=== PATIENT | female | born 1970 | race Caucasian/White ===

== ENCOUNTER 2023-04-09 10:06 | Emergency (ER) | payer OTHER, SELFPAY ==
[2023-04-09 10:14] VITALS: BP 152/88; PULSE 80; RESP 18; TEMP 37.1; O2SAT 100
--- NOTE | 2023-04-09 11:11 | ED.ALLEREA ---
HPI - Allergic Reaction General Chief complaint: Allergic Reaction Stated complaint: allergic reaction x 2 weeks Time Seen by Provider: 04/09/23 11:07 Source: patient Mode of arrival: ambulatory Limitations: no limitations History of Present Illness HPI narrative: Rochelle is a 52-year-old female patient presenting to the ER today for a possible allergic reaction. She reports she was seen in an ER 1 week ago for similar symptoms and diagnosed with an allergic reaction. They gave her oral steroids and Zyrtec. She reports that she has finished up the steroids and her symptoms are returning. States she is having a lot of swelling and itching and watering of the bilateral eyes as well as some itching in her throat. She states that she was wrapping presents prior to this happening this morning. Denies any new environmental changes, foods, medications, soaps, or detergents. Denies any shortness of breath, chest pain, tongue swelling, or difficulty swallowing. Does have an EpiPen from her last visit but did not use it. No visible rash noted Related Data Allergies Allergy/AdvReac Type Severity Reaction Status Date / Time gabapentin Allergy Mild Unknown Verified 04/09/23 10:18 tramadol Allergy Mild Unknown Verified 04/09/23 10:18 Review of Systems Review of Systems: Pertinent positives per HPI. Patient denies any fever, chills, rash, headache, visual changes, dizziness, cough, runny nose, sore throat, shortness of breath, chest pain, palpitations, nausea, vomiting, diarrhea, constipation, abdominal pain, or any urinary issues. PMFSH Comments At the time of my signature, I reviewed and agree with the nursing past medical, surgical, social, and family history. There is no relevant family history pertinent to the patient complaint. Exam Narrative: General: Well-developed, well nourished, in no apparent distress Head: Normocephalic, atraumatic Eyes: Pupils equally round and reactive to light bilaterally, EOM intact, sclera and conjunctive injected with watery discharge coming from eyes right greater than left, lids mildly swollen bilaterally Ears: TMs intact and clear, ear canals clear, no drainage, grossly hearing normal. Nose: Nares patent, clear nasal discharge, no inflammation, no sinus tenderness. Mouth: Oropharynx without lesions or masses, good dentition, MMM. Postnasal drip Neck: Supple, trachea midline, no enlargement of anterior or posterior cervical nodes, no thyroid masses or goiter palpable. Cardio: Regular rate and rhythm, s1 and s2 normal, no murmur appreciated. Resp: Clear to auscultation bilaterally anteriorly and posteriorly, no rhonchi, rales, wheezing or rubs Course Course Emergency Course: Portions of this record may have been created with voice recognition software. Vital Signs Vital signs: Vital Signs Temperature 37.1 C 04/09/23 10:14 Pulse Rate 80 04/09/23 10:14 Respiratory Rate 18 04/09/23 10:14 Blood Pressure 152/88 H 04/09/23 10:14 Pulse Oximetry 100 04/09/23 10:14 Oxygen Delivery Room Air 04/09/23 10:14 Temperature 37.1 C 04/09/23 10:14 Pulse Rate 80 04/09/23 10:14 Respiratory Rate 18 04/09/23 10:14 Blood Pressure 152/88 H 04/09/23 10:14 Pulse Oximetry 100 04/09/23 10:14 Oxygen Delivery Room Air 04/09/23 10:14 Vital signs reviewed MDM - Allergic Reaction MDM Narrative Medical decision making narrative: At the time of visit patient is resting comfortably on the exam table. Patient appears to be nontoxic. Lung sounds are clear and patient denies any shortness of breath. I suspect the patient has allergic conjunctivitis with an allergy response. Decadron 10 mg IM given in the ER today. Will also send in azelastine, prednisone, and Pepcid. Supportive measures were discussed with the patient and they voiced understanding discharge instructions and agrees to treatment plan. Return precautions reviewed. Differential Diagnosis Differential
[2023-04-09 11:54] VITALS: BP 152/84; PULSE 85; RESP 17; O2SAT 99
== END 2023-04-09 11:55 | disposition home or self-care (01) ==
PROVIDERS: Emergency Provider Nurse Practitioner Family
DX: H10.13 Acute atopic conjunctivitis, bilateral (principal); T78.40XA Allergy, unspecified, initial encounter; Z23 Encounter for immunization
CPT/HCPCS: 90471; 99283; J1100

== ENCOUNTER 2023-05-25 13:32 | Emergency (ER) | payer MEDICAID, SELFPAY ==
[2023-05-25 13:34] VITALS: BP 187/99; PULSE 97; RESP 18; TEMP 36.4; O2SAT 100
--- NOTE | 2023-05-25 15:44 | ED.GENADULT ---
HPI - General Adult General Chief complaint: Allergic Reaction Stated complaint: allergic Time Seen by Provider: 05/25/23 13:59 History of Present Illness HPI narrative: Patient is a 52-year-old female who presents ER with eye swelling and tearing. Ongoing for 2-3 months. Initially started after a kitten was in her home but then it was removed. She has laundered every item in her home including her couch covers. She reports she uses and dye free and fragrance free detergents. She is not using any perfumed soaps or body washes. She reports that she has seen her PCP who did allergic blood work on her but she has been taking steroids at the time and the results were inconclusive. She has not seen an automatic lump making machine tender. She recently just got on Medicaid. She is scheduled to follow-up with ENT in 1 month. She has history of nasal polyps diagnosed 3 years ago. At that time she is supposed to have surgery but it did not occur. Patient has noticed no association with any medication or food. Patient has been taking Benadryl to help the symptoms but also takes b.i.d. cetirizine and famotidine. She has been using fluticasone 1 time a day. Related Data Home Medications Medication Instructions Recorded Confirmed cetirizine 10 mg tablet 10 mg PO DAILY 05/25/23 05/25/23 diphenhydramine HCl 25 mg tablet 25 mg PO TID PRN Allergy Symptoms 05/25/23 05/25/23 (Banophen) fluticasone furoate 27.5 1 spray intranasal DAILY 05/25/23 05/25/23 mcg/actuation nasal spray,suspension Allergies Allergy/AdvReac Type Severity Reaction Status Date / Time gabapentin Allergy Mild Unknown Verified 05/25/23 13:48 tramadol Allergy Mild Unknown Verified 05/25/23 13:48 Review of Systems Review of Systems: All systems reviewed & are unremarkable except as noted in HPI and below Constitutional: Constitutional: Reports no additional constitutional complaints ENT: Reports system reviewed and no additional complaints, except as documented Cardiovascular: Cardiovascular: Reports no additional cardiovascular complaints Respiratory: Respiratory: Reports no additional respiratory complaints Integumentary/Breasts: Skin/Breast: Denies pruritus, Reports erythema and Denies rash Allergic/Immunologic: Allergic/Immunologic: Denies lip swelling, Denies throat swelling, Denies tongue swelling and Denies wheezing Comments: eyelid swelling PMFSH Past Medical History Medical History (Updated 05/25/23 @ 15:50 by Imtiaz Azul MD) Anxiety Depression Nasal polyps Surgical History Surgical History (Updated 05/25/23 @ 15:50 by Imtiaz Azul MD) History of hysterectomy Exam Narrative: GENERAL: Well-appearing, well-nourished, and in no acute distress. HEAD: Normocephalic, atraumatic. eyes: Injected conjunctiva. Mild tearing. Normal sclera. EOMI. ENT: Mucous membranes moist. No posterior oropharyngeal swelling. EXTREMITIES: Normal range of motion. No edema. SKIN: Warm, dry, no rash. NEURO: Alert and oriented x3. PSYCH: Normal mood and affect. Course Course Emergency Course: No symptoms may relate and nasal polyps obstructing drainage passage. Recommend increasing fluids take the stone to twice a day and following up with ENT. Vital Signs Vital signs: Vital Signs Temperature 97.6 F 05/25/23 13:34 Pulse Rate 97 05/25/23 13:34 Respiratory Rate 18 05/25/23 13:34 Blood Pressure 187/99 H 05/25/23 13:34 Pulse Oximetry 100 05/25/23 13:34 Oxygen Delivery Room Air 05/25/23 13:34 Temperature 97.6 F 05/25/23 13:34 Pulse Rate 97 05/25/23 13:34 Respiratory Rate 18 05/25/23 13:34 Blood Pressure 187/99 H 05/25/23 13:34 Pulse Oximetry 100 05/25/23 13:34 Oxygen Delivery Room Air 05/25/23 13:34 Medical Decision Making Vital Signs Vital Signs: Vital Signs Temperature 97.6 F 05/25/23 13:34 Pulse Rate 97 05/25/23 13:34 Respiratory Rate 18 05/25/23 13:34 Blood Pressure
--- NOTE | 2023-05-26 08:42 | PC.NURSE ---
Pt called inquiring about discharge prescriptions from visit on 05/25/23. Reviewed discharge instructions with pt. Pt voices understanding
== END 2023-05-25 15:59 | disposition home or self-care (01) ==
PROVIDERS: Emergency Provider Emergency Medicine
DX: H57.89 Other specified disorders of eye and adnexa (principal); J33.9 Nasal polyp, unspecified; Z90.710 Acquired absence of both cervix and uterus
CPT/HCPCS: 99281

== ENCOUNTER 2023-06-08 13:09 | Emergency (ER) | payer MEDICAID, SELFPAY ==
--- NOTE | ~2023-06-08 | XR_ITS ---
EXAMINATION: XR chest 2V DATE: 06/08/2023 18:29 INDICATION: Facial swelling. TECHNIQUE: Frontal and lateral views of the chest were obtained. COMPARISON: Chest 2 views 04/25/2017 FINDINGS: Calcified pulmonary nodules and calcified hilar lymph nodes are consistent with old granulo matous disease. No pleural effusion or pneumothorax. The heart size is normal. IMPRESSION: 1. No acute cardiopulmonary disease. Reviewed, dictated and finalized at location E. PUNCHING MACHINE OPERATOR
--- NOTE | ~2023-06-08 | CT_ITS ---
EXAMINATION: CT soft tissue neck w con DATE: 06/08/2023 19:57 INDICATION: Face, head, and neck swelling. Left posterolateral neck discomfort. TECHNIQUE: Computed tomography (CT) of the neck was performed with 75 mL Omnipaque-350 intravenous co ntrast. Automated exposure control and iterative reconstruction technique were employed. The dose-lisa gth product was 407.70 mGy-cm. COMPARISON: None FINDINGS: There is mild scarring at the lung apices. There is a mucous retention cyst in right maxill deana sinus. There are no pathologically enlarged lymph nodes. There is plaque in the proximal internal carotid arteries with 0% stenosis relative to normal distal artery lumen diameters. There is mild ce rvical spondylosis. IMPRESSION: 1. No specific etiology for the patient's symptoms. I called this result to Dr. Gomez at 8:03 PM. Reviewed, dictated and finalized at location E. ERNAIL SCULPTOR
[2023-06-08 14:07] VITALS: BP 157/95; PULSE 83; RESP 16; TEMP 36.4; O2SAT 100
--- NOTE | 2023-06-08 17:09 | ED.GENADULT ---
HPI - General Adult General Chief complaint: Unspecified Stated complaint: facial swelling Time Seen by Provider: 06/08/23 14:37 Source: patient Limitations: no limitations History of Present Illness HPI narrative: Patient is a 52-year-old female presents to the emergency department complaining of neck discomfort and facial swelling. Patient states she has been having facial swelling daily for the past 3 months and has not gone away and seems to be overall gradually getting worse, has been on multiple medications for allergies without any recent changes, denies any new exposures, admits to having multiple allergy testing performed, does not know causes of facial swelling. Patient states for the past couple days she has been noticing some discomfort in the back left side of her neck that has not gotten better. Patient also admits to some mild lightheadedness when she stands up the past couple days. Patient admits to being adequately hydrated with clear urine. Patient denies difficulty swallowing, numbness, weakness, chest pain, difficulty breathing, abdominal pain, urinary discomfort, diarrhea, nausea, vomiting, rash, lip swelling, tongue swelling, confusion, ear pain, fever, recent injuries, recent illness, new exposures to allergen commons. patient admits to chronic congestion. Related Data Home Medications Medication Instructions Recorded Confirmed cetirizine 10 mg tablet 10 mg PO DAILY 05/25/23 05/25/23 diphenhydramine HCl 25 mg tablet 25 mg PO TID PRN Allergy Symptoms 05/25/23 05/25/23 (Banophen) fluticasone furoate 27.5 1 spray intranasal DAILY 05/25/23 05/25/23 mcg/actuation nasal spray,suspension Allergies Allergy/AdvReac Type Severity Reaction Status Date / Time gabapentin Allergy Mild Unknown Verified 05/25/23 13:48 tramadol Allergy Mild Unknown Verified 05/25/23 13:48 Review of Systems Review of Systems: A 10 system review of systems was completed on the patient and is negative except for what is stated in the HPI. Nursing and ancillary documentation was reviewed. [facility] Past Medical History Medical History (Updated 06/08/23 @ 20:30 by Jewel Gomez DO) Anxiety Depression Nasal polyps Surgical History Surgical History (Updated 05/25/23 @ 15:50 by Imtiaz Azul MD) History of hysterectomy Comments At time of signature, I have reviewed and agree with nursing past medical, surgical, social and family history unless otherwise noted. Please see the nursing chart for further information. There is no relevant family history pertinent to the presenting complaint. Exam Narrative: CONST: No acute distress. Well nourished. HENMT: Head is normocephalic and atraumatic. Moist mucous membranes. No posterior oropharynx erythema. No angioedema. Bilateral tympanic membranes are without bulging or erythema. Mild nasal congestion bilaterally. Scant diffuse facial swelling. EYES: No conjunctival icterus, injection, or pallor. PERRL. Extraocular motions intact. NECK: No meningeal signs. Scant bilateral palpable nontender shotty lymphadenopathy in the anterior cervical superficial region. No carotid bruits on auscultation bilaterally. Mild left superolateral trapezius muscle spasm and middle scalene spasm. No palpable thyromegaly or thyroid tenderness to palpation. RESP: Able to speak in full sentences. Normal respiratory effort. CTAB. CARDIO: Regular rate. Regular rhythm. 2+ DP and radial pulses bilaterally. GI: Nondistended. No tenderness to palpation. Soft. : No CVA tenderness to palpation. SKIN: No rashes or lesions noted on exposed skin. NEURO: Oriented x3. Moves all extremities. No focal neurological deficits. Cranial nerves 2-12 intact. EXTREM/MSK/BACK: No pedal edema. PSYCH: Normal affect. Course Vital Signs Vital signs: Vital Signs Temperature 97.6 F 06/08/23 14:07 Pulse Rate 83 06/08/23 14:07 Respiratory Rate 16 06/08/23 14:07 Blood Pressure
--- NOTE | 2023-06-08 17:15 | ECG_ITS ---
Measurements Intervals [place] Rate: 71 P: 244 LA: 143 QRS: 6 QRSD: 120 T: 36 QT: 381 QTc: 414 Interpretive Statements NORMAL SINUS RHYTHM INCOMPLETE RIGHT BUNDLE BRANCH BLOCK BORDERLINE ECG NO PREVIOUS ECG AVAILABLE FOR COMPARISON Electronically Signed On 06-09-2023 7:12:27 SUPERVISOR CAPAC[employer]OR PROCESSING by Bennie Menchaca M.D.
[2023-06-08 17:49] LABS: Basophils Absolute Auto 0.1 K/mm3 (0.0-0.1); Basophils Percent Auto 0.7 % (0.2-1.2); Eosinophils Absolute Auto 0.1 K/mm3 (0-0.3); Eosinophils Percent Auto 0.5 % (0-4.4); Hematocrit 40.9 % (37.0-47.0); Hemoglobin 13.6 g/dL (12.0-15.0); Immature Granulocyte Absolute 0.03 K/mm3 (0.00-0.031); Immature Granulocyte Percent A 0.3 % (0-0.5); Lymphocytes Absolute Auto 1.92 K/mm3 (0.9-3.2); Lymphocytes Percent Auto 17.3 % (18.3-44.2); Mean Corpuscular HGB Conc 33.3 g/dl (32-36); Mean Corpuscular Hemoglobin 30.4 pg (26-34); Mean Corpuscular Volume 91.3 fl (80-100); Monocytes Absolute Auto 0.7 K/mm3 (0.1-0.6); Monocytes Percent Auto 6.7 % (2.6-8.5); Neutrophils Absolute Auto 8.3 K/mm3 (1.3-6.7); Neutrophils Percent Auto 74.5 % (45.5-73.1); Platelet Count Result 323 k/mm3 (150-375); Red Blood Count 4.48 M/mm3 (4.2-5.4); Red Cell Distribution Width 12.6 % (11.5-14.5); White Blood Count 11.1 K/mm3 (4.5-10.0)
[2023-06-08 17:58] LABS: Magnesium 2.3 mg/dL (1.6-2.3)
[2023-06-08 17:59] LABS: Alanine Aminotransferase 17 U/L (6-35); Albumin Level 4.4 g/dL (3.5-5.1); Alkaline Phosphatase 83 U/L (38-126); Anion Gap 5 mmol/L (8-16); Aspartate Amino Transferase 28 U/L (14-36); Bilirubin,Total 0.7 mg/dL (0.2-1.3); Blood Urea Nitrogen 12 mg/dL (7-17); Calcium 9.6 mg/dL (8.4-10.2); Carbon Dioxide 30 mmol/L (22-30); Chloride 105 mmol/L (98-107); Estimated CRCL calculation 72 ml/min; Estimated Glomerular Filt Rate > 60; Glucose 85 mg/dL (65-110); Potassium 3.9 mmol/L (3.4-5.0); Sodium 140 mmol/L (137-145)
[2023-06-08 18:02] LABS: Appearance Urine Turbid (Clear); Bacteria Urine 4+ /hpf; Bilirubin Urine Negative (Negative); Color Urine Yellow (Yellow); Glucose Urine UA Negative (Negative); Ketones Urine Negative (Negative); Leukocyte Esterase Ur 3+ LEU/UL (Negative); Need Manual Microscopic Reviewed; Nitrate Urine Negative (Negative); Protein Urine 1+ mg/dL (Negative); RBC Urine 0-2 /hpf (0-2); Squamous Epithelial Cell Urine Many /hpf (Few); WBC Urine >100 /hpf; pH Urine 6.5 (5.0-9.0)
[2023-06-08 18:03] LABS: Add Urine Microscopic? YES
[2023-06-08 18:10] LABS: Troponin I < 0.012 ng/mL (0.000-0.034)
[2023-06-08 18:26] LABS: Influenza A QL RT-PCR Negative (Negative); Influenza B QL RT-PCR Negative (Negative); RSV RNA, RT-PCR Negative (Negative); SARS-CoV-2 RNA PCR Negative (Negative)
[2023-06-08 19:21] LABS: Thyroid Stimulating Hormone Reflex 0.479 uIU/mL (0.465-4.68)
[2023-06-08] MEDS: KETOROLAC 15 MG/ML VIAL (*BKC) IV PUSH (19:34)
[2023-06-08 21:00] VITALS: BP 148/99; PULSE 78; RESP 15; TEMP 36.4; O2SAT 97
== END 2023-06-08 21:03 | disposition home or self-care (01) ==
PROVIDERS: Emergency Provider Student in an Organized Health Care Education/Training Program
DX: S16.1XXA Strain of muscle, fascia and tendon at neck level, initial encounter (principal); Z20.822 Contact with and (suspected) exposure to COVID-19; F41.9 Anxiety disorder, unspecified; F32.A Depression, unspecified; Z90.710 Acquired absence of both cervix and uterus; X58.XXXA Exposure to other specified factors, initial encounter
CPT/HCPCS: 36415; 70491; 71046; 80053; 81001; 83735; 84443; 84484; 85025; 87086; 87637; 93005; 96374; 99284; J1885; Q9967

== ENCOUNTER 2023-06-22 16:16 | Outpatient (CLI) | payer MEDICAID, SELFPAY ==
--- NOTE | ~2023-06-22 | MM_ITS ---
EXAMINATION: MM screening alfonzo BI w vega HISTORY: Screening TECHNIQUE: Craniocaudal and mediolateral oblique 3-D tomosynthesis images were obtained and synthetic 2-D images were generated. CAD analysis was submitted and interpreted. COMPARISON: No prior mammogram is available for comparison at this institution. BREAST PARENCHYMAL COMPOSITION: The breasts are heterogeneously dense, which may obscure small masses . FINDINGS: There is no evidence of suspicious mass, calcification, or architectural distortion to sugg est malignancy in either breast. There has been no suspicious interval change. IMPRESSION: 1. No mammographic evidence of malignancy. 2. Recommend routine screening mammography in one year. BI-RADS Category 1: Negative Reviewed, dictated and finalized at location A. [employer]
== END 2023-06-22 16:17 | disposition home or self-care (01) ==
LOC: ANHIMG 16:19
PROVIDERS: Visit Provider Internal Medicine
DX: Z12.31 Encounter for screening mammogram for malignant neoplasm of breast (principal)
CPT/HCPCS: 77063; 77067

== ENCOUNTER 2023-06-27 21:14 | Emergency (ER) | payer MEDICAID, SELFPAY ==
[2023-06-27 21:25] VITALS: BP 136/76; PULSE 99; RESP 16; TEMP 36.6; O2SAT 97
[2023-06-28 00:13] VITALS: BP 134/87; PULSE 85; RESP 16; TEMP 36.8; O2SAT 98
--- NOTE | 2023-06-28 00:16 | ED.GENADULT ---
HPI - General Adult General Chief complaint: Nausea/Vomiting/Diarrhea Stated complaint: n/v/d Time Seen by Provider: 06/28/23 00:10 Source: patient Mode of arrival: ambulatory Limitations: no limitations History of Present Illness HPI narrative: This is a 53-year-old female who presents to the ED with chief complaint of N/V/D beginning around 1:00 p.m. today. 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 She states this was accompanied by multiple episodes of diarrhea. Denies any GI bleeding symptoms. Denies syncope or lightheadedness. She does endorse some abdominal pain that seems to be more associated with the diarrhea and is described as cramping. She had not eaten any food yet today. Endorses mild headache. denies fevers, chills, shortness of breath, chest pain, urinary symptoms. Related Data Home Medications Medication Instructions Recorded Confirmed cetirizine 10 mg tablet 10 mg PO DAILY 05/25/23 06/26/23 diphenhydramine HCl 25 mg tablet 25 mg PO TID PRN Allergy Symptoms 05/25/23 06/26/23 (Banophen) fluticasone furoate 27.5 2 - 3 spray intranasal BID 06/26/23 06/26/23 mcg/actuation nasal spray,suspension Allergies Allergy/AdvReac Type Severity Reaction Status Date / Time gabapentin Allergy Mild Unknown Verified 06/27/23 21:27 tramadol Allergy Mild Unknown Verified 06/27/23 21:27 Review of Systems Review of Systems: All systems as dictated in [facility] Past Medical History Medical History Anxiety Depression Nasal polyps Surgical History Surgical History History of hysterectomy Family History Family History (Updated 06/26/23 @ 09:41 by Katy Kellogg CMA) Father Cancer Diabetes mellitus Hypertension Mother Cancer Depression Other Cancer Social History Social History (Updated 06/26/23 @ 09:40 by Katy Kellogg CMA) Smoking status: Never smoker Tobacco type: e-cigarettes/vaping Alcohol intake: current Substance use: never Substance use type: does not use Do You Feel Safe in your Home?: Yes Lack of Transportation: No Lack of Food: Never True Current Housing: I Have Housing Concerned About Future Housing: No Difficulty Paying Gas/Electric Bills: No Difficulty Paying for Meds: No Currently Unemployed: No Education: Trade/Vocational Certificate Difficulty w/ Childcare or Family Care: No Exam Narrative: GENERAL: Well-appearing, well-nourished, and in no acute distress. HEAD: Normocephalic, atraumatic. EYES: PERRLA and EOMI. ENT: Nares clear, no rhinorrhea or epistaxis. Mucous membranes moist. Oropharynx without tonsillar hypertrophy exudate or other lesions. NECK: Supple. No adenopathy or masses. CHEST: No respiratory distress. Clear to auscultation. No wheezes rales or rhonchi HEART: Regular rate and rhythm. No murmur heard. Normal peripheral pulses. ABDOMEN: Soft, grossly nontender, nondistended, normal active bowel sounds. No flank tenderness bilaterally. MSK: Normal range of motion. No edema. SKIN: Warm, dry, no rash. NEURO: Alert and oriented x3. No focal deficits. PSYCH: Normal mood and affect. Course Vital Signs Vital signs: Vital Signs Temperature 97.9 F 06/27/23 21:25 Pulse Rate 99 06/27/23 21:25 Respiratory Rate 16 06/27/23 21:25 Blood Pressure 136/76 06/27/23 21:25 Pulse Oximetry 97 06/27/23 21:25 Oxygen Delivery Room Air 06/27/23 21:25 Temperature 98.2 F 06/28/23 00:13 Pulse Rate 85 06/28/23 00:13 Respiratory Rate 16 06/28/23 00:13 Blood Pressure 134/87 06/28/23 00:13 Pulse Oximetry 98 06/28/23 00:13 Oxygen Delivery Room Air 06/27/23 21:25 Medical Decision Making MDM Narrative Medical decision making narrative: This is a 53-year-old female
[2023-06-28 00:23] LABS: Basophils Absolute Auto 0.1 K/mm3 (0.0-0.1); Basophils Percent Auto 0.4 % (0.2-1.2); Eosinophils Absolute Auto 0.1 K/mm3 (0-0.3); Eosinophils Percent Auto 0.4 % (0-4.4); Hematocrit 40.5 % (37.0-47.0); Hemoglobin 13.7 g/dL (12.0-15.0); Immature Granulocyte Absolute 0.05 K/mm3 (0.00-0.031); Immature Granulocyte Percent A 0.4 % (0-0.5); Lymphocytes Percent Auto 3.7 % (18.3-44.2); Mean Corpuscular HGB Conc 33.8 g/dl (32-36); Mean Corpuscular Hemoglobin 30.6 pg (26-34); Mean Corpuscular Volume 90.4 fl (80-100); Mean Platelet Volume 9.2 fl (7.4-10.4); Monocytes Absolute Auto 0.6 K/mm3 (0.1-0.6); Monocytes Percent Auto 4.1 % (2.6-8.5); Neutrophils Absolute Auto 12.3 K/mm3 (1.3-6.7); Platelet Count Result 367 k/mm3 (150-375); Red Blood Count 4.48 M/mm3 (4.2-5.4); Red Cell Distribution Width 12.6 % (11.5-14.5); White Blood Count 13.5 K/mm3 (4.5-10.0)
[2023-06-28] MEDS: KETOROLAC 30 MG/ML VIAL (*BKC) IV PUSH (00:23)
[2023-06-28] MEDS: ONDANSETRON INJ 4 MG/2 ML VIAL IV PUSH (00:23)
[2023-06-28] MEDS: SODIUM CHLORIDE 0.9% IV 1,000 ML 999 ML IV CONT (00:24)
[2023-06-28 00:33] LABS: Alanine Aminotransferase 16 U/L (6-35); Albumin Level 4.6 g/dL (3.5-5.1); Alkaline Phosphatase 97 U/L (38-126); Anion Gap 7 mmol/L (8-16); Aspartate Amino Transferase 34 U/L (14-36); Bilirubin,Total 0.8 mg/dL (0.2-1.3); Blood Urea Nitrogen 17 mg/dL (7-17); Calcium 9.4 mg/dL (8.4-10.2); Carbon Dioxide 26 mmol/L (22-30); Chloride 102 mmol/L (98-107); Estimated CRCL calculation 80 ml/min; Estimated Glomerular Filt Rate > 60; Glucose 116 mg/dL (65-110); Lactic Acid Reflex 0.6 mmol/L (0.7-2.0); Lipase 46 U/L (23-300); Potassium 3.8 mmol/L (3.4-5.0); Sodium 135 mmol/L (137-145)
[2023-06-28 00:44] LABS: Appearance Urine Cloudy (Clear); Bacteria Urine Rare /hpf; Bilirubin Urine Negative (Negative); Blood Urine Negative (Negative); Color Urine Yellow (Yellow); Glucose Urine UA Negative (Negative); Ketones Urine 1+ mg/dL (Negative); Leukocyte Esterase Ur Negative LEU/UL (Negative); Nitrate Urine Negative (Negative); Non Pathogenic Casts 0-2; Protein Urine Negative (Negative); RBC Urine 0-2 /hpf (0-2); Squamous Epithelial Cell Urine Moderate /hpf (Few); WBC Urine 0-5 /hpf
[2023-06-28 00:50] LABS: Add Urine Microscopic? YES
[2023-06-28] MEDS: diphenhydrAMINE HCl INJ 50 MG/ML VIAL 25 MG IV PUSH (01:20)
[2023-06-28] MEDS: PROCHLORPERAZINE EDISYLATE 10 MG/2 ML VIAL IV PUSH (01:20)
[2023-06-28] MEDS: ACETAMINOPHEN 500 MG TABLET 1000 MG PO (01:20)
[2023-06-28 02:37] VITALS: BP 126/70; PULSE 78; RESP 16; TEMP 36.8; O2SAT 98
== END 2023-06-28 02:38 | disposition home or self-care (01) ==
PROVIDERS: Emergency Provider Physician Assistant; PCP Internal Medicine
DX: K52.9 Noninfective gastroenteritis and colitis, unspecified (principal); Z90.710 Acquired absence of both cervix and uterus
CPT/HCPCS: 36415; 80053; 81001; 83605; 83690; 85025; 96361; 96374; 96375; 99284; A9270; J0780; J1200; J1885; J2405; J7030

== ENCOUNTER 2023-11-09 16:43 | Emergency (ER) | payer OTHER, SELFPAY ==
[2023-11-09] VITALS (8 sets, daily range): BP systolic 119–161; BP diastolic 74–110; PULSE 77–86; RESP 12–19; TEMP 36.6; O2SAT 98–100
--- NOTE | ~2023-11-09 | CT_ITS ---
EXAMINATION: CT brain wo con DATE: 11/09/2023 17:55 INDICATION: Headache. TECHNIQUE: Computed tomography (CT) of the head was performed without intravenous contrast. The mA wa s adjusted according to patient size. Iterative reconstruction technique was employed. The dose-lengt h product was 681.00 mGy-cm. COMPARISON: Head CT 12/25/2012 FINDINGS: There is no intracranial hemorrhage, acute infarction, or abnormal intracranial mass lesion . The ventricles are normal in size. The orbits are normal. There is a mucous retention cyst in right maxillary sinus. There is mild mucosal thickening in the ethmoid sinuses. The mastoid air cells are normal. IMPRESSION: 1. Normal brain. Reviewed, dictated and finalized at location E. IMPRESSION: 1. Normal brain.
--- NOTE | 2023-11-09 17:47 | ED.GENADULT ---
HPI - General Adult General Chief complaint: Recheck/Abnormal Lab/Rx Stated complaint: high bp Time Seen by Provider: 11/09/23 17:35 History of Present Illness HPI narrative: 53-year-old female present to the emergency department for evaluation of elevated blood pressure. Patient states she was started on valsartan approximately 3 months ago. Patient states over the last few weeks she has had increasing fatigue. Patient was told by her primary care physician to stop the blood pressure medication to see if this helped. Patient stopped the medication approximately 2 weeks ago, patient still has the feelings of fatigue and now patient has elevated blood pressure and headache. Patient contacted her primary care physician and she was referred to the emergency department. Related Data Home Medications Medication Instructions Recorded Confirmed cetirizine 10 mg tablet 10 mg PO DAILY 05/25/23 06/26/23 diphenhydramine HCl 25 mg tablet 25 mg PO TID PRN Allergy Symptoms 05/25/23 06/26/23 (Banophen) fluticasone furoate 27.5 2 - 3 spray intranasal BID 06/26/23 06/26/23 mcg/actuation nasal spray,suspension valsartan 80 mg capsule 40 mg PO DAILY 11/09/23 Allergies Allergy/AdvReac Type Severity Reaction Status Date / Time gabapentin Allergy Mild Unknown Verified 11/09/23 17:36 tramadol Allergy Mild Unknown Verified 11/09/23 17:36 Review of Systems Review of Systems: All systems reviewed & are unremarkable except as noted in HPI and below PMFSH Past Medical History Medical History Anxiety Depression Nasal polyps Surgical History Surgical History History of hysterectomy Family History Family History (Updated 06/26/23 @ 09:41 by Katy Kellogg CMA) Father Cancer Diabetes mellitus Hypertension Mother Cancer Depression Other Cancer Social History Social History (Updated 06/26/23 @ 09:40 by Katy Kellogg CMA) Smoking status: Never smoker Tobacco type: e-cigarettes/vaping Alcohol intake: current Substance use: never Substance use type: does not use Do You Feel Safe in your Home?: Yes Lack of Transportation: No Lack of Food: Never True Current Housing: I Have Housing Concerned About Future Housing: No Difficulty Paying Gas/Electric Bills: No Difficulty Paying for Meds: No Currently Unemployed: No Education: Trade/Vocational Certificate Difficulty w/ Childcare or Family Care: No Exam Narrative: APPEARANCE: Well appearing, no pain, no distress, well-nourished. HEAD: normocephalic, atraumatic. EYES: PERRLA/EOMI, conjunctivae clear. NOSE: Normal no drainage EARS:TMS clear with good light reflex. THROAT: Pharynx clear, no exudate. NECK: Supple. No adenopathy, no masses. RESPIRATORY: Airway patent, respirations nonlabored. Clear to auscultation bilaterally, no rales, rhonchi, wheezing. CARDIOVASCULAR: Regular rate and rhythm without murmurs rubs or gallops. ABDOMINAL: Soft, nontender, nondistended, normal bowel sounds MUSCULOSKELETAL: Moves all extremities. Strength/ROM intact, No edema, No calf tenderness. NEURO: Alert. Cranial nerves II through XII intact. Good gait. Good coordination SKIN: Warm, dry. Normal Color PSYCHIATRIC: Normal affect/mood. Course Course Emergency Course: patient's blood pressure was 120/70 prior to discharge. Patient was encouraged of close follow-up with her primary care physician Vital Signs Vital signs: Vital Signs Temperature 97.8 F 11/09/23 16:50 Pulse Rate 86 11/09/23 16:50 Respiratory Rate 17 11/09/23 16:50 Blood Pressure 161/97 H 11/09/23 16:50 Pulse Oximetry 100 11/09/23 16:50 Oxygen Delivery Room Air 11/09/23 16:50 Temperature 97.8 F 11/09/23 16:50 Pulse Rate 78 11/09/23 19:29 Respiratory Rate 14 11/09/23 19:29 Blood Pressure 119/74 11/09/23 19:29 Pulse Ox
[2023-11-09] MEDS: hydrALAZINE HCL 20 MG/ML VIAL 10 MG IV PUSH (18:06)
[2023-11-09 18:16] LABS: Appearance Urine Clear (Clear); Bacteria Urine None Seen /hpf; Bilirubin Urine Negative (Negative); Blood Urine Negative (Negative); Color Urine Yellow (Yellow); Glucose Urine UA Negative (Negative); Ketones Urine Negative (Negative); Leukocyte Esterase Ur Trace LEU/UL (Negative); Nitrate Urine Negative (Negative); Non Pathogenic Casts 0-2; Protein Urine Negative (Negative); RBC Urine 0-2 /hpf (0-2); Specific Grav Ur 1.009 (1.001-1.035); Squamous Epithelial Cell Urine Occasional /hpf (Few); Urobilinogen Urine 0.2 mg/dL (<2.0); WBC Urine 0-5 /hpf (0-3); pH Urine 6.5 (5.0-9.0)
[2023-11-09 18:17] LABS: Add Urine Microscopic? YES
[2023-11-09 18:21] LABS: Alanine Aminotransferase 17 U/L (6-35); Alkaline Phosphatase 83 U/L (38-126); Anion Gap 9 mmol/L (4-12); Aspartate Amino Transferase 30 U/L (14-36); Bilirubin,Total 0.4 mg/dL (0.2-1.3); Blood Urea Nitrogen 15 mg/dL (7-17); Calcium 9.4 mg/dL (8.4-10.2); Carbon Dioxide 31 mmol/L (22-30); Chloride 103 mmol/L (98-107); Estimated CRCL calculation 62 ml/min; Estimated Glomerular Filt Rate > 60; Glucose 85 mg/dL (65-110); Potassium 4.4 mmol/L (3.4-5.0); Sodium 143 mmol/L (137-145)
[2023-11-09 18:23] LABS: INR 0.9; Prothrombin Time 12.5 Seconds (11.1-14.7)
[2023-11-09 18:24] LABS: Partial Thromboplastin Time 26.6 Seconds (22.3-36.8)
[2023-11-09 18:29] LABS: Basophils Absolute Auto 0.1 K/mm3 (0.0-0.1); Basophils Percent Auto 1.3 % (0.2-1.2); Eosinophils Absolute Auto 0.1 K/mm3 (0-0.3); Hematocrit 41.3 % (37.0-47.0); Immature Granulocyte Absolute 0.01 K/mm3 (0.00-0.031); Immature Granulocyte Percent A 0.1 % (0-0.5); Lymphocytes Absolute Auto 2.35 K/mm3 (0.9-3.2); Lymphocytes Percent Auto 34.8 % (18.3-44.2); Mean Corpuscular HGB Conc 33.9 g/dl (32-36); Mean Corpuscular Hemoglobin 31.1 pg (26-34); Mean Corpuscular Volume 91.8 fl (80-100); Mean Platelet Volume 9.5 fl (7.4-10.4); Monocytes Absolute Auto 0.6 K/mm3 (0.1-0.6); Monocytes Percent Auto 8.3 % (2.6-8.5); Neutrophils Absolute Auto 3.7 K/mm3 (1.3-6.7); Neutrophils Percent Auto 54.5 % (45.5-73.1); Platelet Count Result 346 k/mm3 (150-375); Red Cell Distribution Width 12.7 % (11.5-14.5); White Blood Count 6.8 K/mm3 (4.5-10.0)
[2023-11-09] MEDS: KETOROLAC 15 MG/ML VIAL (*BKC) IV PUSH (18:50)
== END 2023-11-09 19:31 | disposition home or self-care (01) ==
PROVIDERS: Emergency Provider Emergency Medicine; PCP Internal Medicine
DX: I10 Essential (primary) hypertension (principal); Z90.710 Acquired absence of both cervix and uterus; Z79.899 Other long term (current) drug therapy
CPT/HCPCS: 36415; 70450; 80053; 81001; 85025; 85610; 85730; 96374; 96375; 99284; J0360; J1885

== ENCOUNTER 2023-11-10 14:04 | Emergency (ER) | payer OTHER, SELFPAY ==
[2023-11-10 14:26] VITALS: BP 148/85; PULSE 86; RESP 16; TEMP 36.6; O2SAT 98
--- NOTE | 2023-11-10 14:30 | PC.NURSE ---
during triage BP 148/85. Pt states if that's what it is I'm going home. Pt advised of risks and concerns of LWBS since she also has c/o my head feels fuzzy and voices positive understanding. Pt reports she will call 911 or return to ED with any concerns
== END 2023-11-10 16:32 | disposition left against medical advice (07) ==
PROVIDERS: PCP Internal Medicine
DX: R03.0 Elevated blood-pressure reading, without diagnosis of hypertension (principal)
CPT/HCPCS: 99199